=== PATIENT | female | born 1950 | race Caucasian/White ===

== ENCOUNTER 2018-04-19 17:05 | Emergency (ER) | payer MEDICARE, OTHER ==
[2018-04-19] MEDS ORDERED: Sodium Chloride 0.9% 1,000 ML IV ONE (17:48)
[2018-04-19] MEDS ORDERED: Sodium Chloride 0.9% 10 ML Syringe FLUSH PRN (17:49)
[2018-04-19] MEDS ORDERED: Pantoprazole 40 MG Vial IVPUSH ONE (17:49)
--- NOTE | 2018-04-19 19:01 | EDM.PDOC ---
"<Leighann Elise - Last Filed: 04/19/18 19:52> ED HPI GENERAL MEDICAL PROBLEM - General Chief Complaint: Gastrointestinal Problem Stated Complaint: LOW HEMOGLOBIN/CHI DL CLINIC Time Seen by Provider: 04/19/18 19:00 - History of Present Illness INITIAL COMMENTS - FREE TEXT/NARRATIVE: Danny is a 67 year old Female presented to the clinic this morning with melanotic stool for 3 days. She has associated symptoms of dizziness, fatigue, and decreased appetite. Her symptoms started while on vacation in [place]. Since the beginning of her symptoms she has also experienced constant epigastric pain and some intermittent left lower quadrant pain. She has had constant melanotic stools per day with some hematochezia as well. She endorses frequent chronic, uncontrolled bowel movements due to a history of gastric bypass surgery but has never had melena or hematochezia. She has also experienced an increased amount of abdominal distension and gas. She was also treated in clinic today with Amoxicillin for a sinus infection. Epigastric Pain Score (Numeric/FACES): 5 - Related Data Allergies Allergy/AdvReac Type Severity Reaction Status Date / Time codeine Allergy Hallucinati Verified 04/19/18 17:11 ons Home Meds: Home Meds Zolpidem [Ambien] 1 tab PO BEDTIME PRN 11/26/14 [History] Past Medical History Respiratory History: Reports: Asthma Other Musculoskeletal History: NEUROMA OF FOOT Other Oncologic History: Extensive family history of breast cancer in all members of her female family. Mon-Grandmother and sister all dies of breast cancer. Family Physician recommended she have a mastectomy after having 7 lumps removed over the. past several years...so in 2011 has a double mastectomy. Has a Uncle nad a brother with colon cancer...this on mothers side. Having follow up colonoscopy by Dr. Maciel tomorrow 11/27/14 - Infectious Disease History Infectious Disease History: Reports: Measles, Mumps - Past Surgical History Other HEENT Surgeries/Procedures: ADENOIDECTOMY Other Cardiovascular Surgeries/Procedures: CARDIAC CATHERTERIZATION; STRESS TEST ; ECHOCARDOGRAPHY; ELECTROCARDIOGRAM Other GI Surgeries/Procedures: GASTRIC BYPASS and Hemorrhoid resection Female Surgical History: Reports: Hysterectomy, Mastectomy (Elective double mastectomy due to significant family history) Other Oncologic Surgeries/Procedures: double mastectomy due to family Hx. Social & Family History - Tobacco Use Smoking Status *Q: Never Smoker Second Hand Smoke Exposure: No - Caffeine Use Caffeine Use: Reports: Soda - Recreational Drug Use Recreational Drug Use: No ED ROS GENERAL - Review of Systems Review Of Systems: See Below Constitutional: Reports: Weakness (per HPI), Fatigue (per HPI), Decreased Appetite (per HPI) HEENT: Reports: No Symptoms Respiratory: Reports: No Symptoms Cardiovascular: Reports: No Symptoms GI/Abdominal: Reports: Diarrhea (Chronic) : Reports: No Symptoms Musculoskeletal: Reports: No Symptoms Skin: Reports: No Symptoms Neurological: Reports: Dizziness (per HPI) ED EXAM, GI/ABD - Physical Exam Exam: See Below Exam Limited By: No Limitations General Appearance: Alert, Mild Distress Eyes: Bilateral: Normal Appearance, EOMI Ears: Normal External Exam, Hearing Grossly Normal Nose: Normal Inspection, Nasal Tenderness Throat/Mouth: Normal Inspection Head: Atraumatic, Normocephalic Neck: Normal Inspection, Supple, Non-Tender Respiratory/Chest: No Respiratory Distress, Lungs Clear, Normal Breath Sounds Cardiovascular: Normal Peripheral Pulses, Regular Rate, Rhythm Rectal (Female) Exam: Normal Rectal Tone, Black Stool, Bloody Stool. No: Hemorrhoids, Mass, Tenderness Extremities: Pedal Edema (developed after the flight, 1+ bilaterally), Slow Capillary Refill (3 seconds) Neurological: Alert, Oriented Skin Exam: Warm, Dry, Intact, Pallor Course - Vital Signs Last Recorded V/S: Last Vital Signs Temp 99.8 F 04/19/18 19:23 Pulse 90 04/19/18 19:23 Resp 18 04/19/18 19:23 BP 104/48 L 04/19/18 19:23 Pulse Ox 99 04/19/18 19:23 - Orders/Labs/Meds Orders: Active Orders 24 hr Category Date Time Status Peripheral IV Care [RC] . DIRECTED Care 04/19/18 17:49 Active Abdomen Pelvis w Cont [CT] Urgent Exams 04/19/18 19:39 Ordered RED BLOOD CELLS LP [BBK] Stat Lab 04/19/18 17:57 Results TYPE AND SCREEN [BBK] Stat Lab 04/19/18 17:57 Results Peripheral IV Insertion Adult [OM.PC] Stat Oth 04/19/18 17:47 Ordered Labs: Laboratory Tests 04/19/18 04/19/18 04/19/18 Range/Units 17:57 17:57 17:57 WBC 5.9 (5.0-10.0) 10^3/uL RBC 2.82 L (4.2-5.4) 10^6/uL Hgb 7.2 L (12.0-16.0) g/dL Hct 23.5 L (37.0-47.0) % MCV 83.3 (80-100) fL MCH 25.5 L (27.0-34.0) pg MCHC 30.6 L (33.0-35.0) g/dL Plt Count 282 (150-450) 10^3/uL Neut % (Auto) 62.5 (42.2-75.2) % Lymph % (Auto) 21.4 (20.5-50.1) % Gaines % (Auto) 15.4 H (2-8) % Eos % (Auto) 0.2 L (1.0-3.0) % Baso % (Auto) 0.5 (0.0-1.0) % Amylase 73 (28-100) U/L Lipase 35 (22-51) U/L Blood Type O POSITIVE Gel Antibody Screen Negative Crossmatch See Detail Meds: Medications Discontinued Medications Generic Name Dose Route Start Last Admin Trade Name Freq PRN Reason Stop Dose Admin Sodium Chloride 1,000 mls @ 200 mls/hr 04/19/18 17:48 04/19/18 18:08 Normal Saline IV 04/19/18 22:47 200 mls/hr .BOLUS ONE Administration Iopamidol 75 ml 04/19/18 19:36 04/19/18 20:07 Isovue-300 (61%) IVPUSH 04/19/18 19:37 75 ml ONETIME ONE Administration Pantoprazole Sodium 80 mg 04/19/18 17:49 04/19/18 18:08 Protonix Iv IVPUSH 04/19/18 17:50 80 mg .BOLUS ONE Administration Sodium Chloride 10 ml 04/19/18 17:49 04/19/18 18:08 Saline Flush FLUSH 10 ml ASDIRECTED PRN Administration Keep Vein Open Departure - Departure Time of Disposition: 19:57 Condition: Fair Clinical Impression: GI bleed Qualifiers: GI bleed type/associated pathology: melena Qualified Code(s): K92.1 - Melena - Discharge Information *PRESCRIPTION DRUG MONITORING PROGRAM REVIEWED*: No *COPY OF PRESCRIPTION DRUG MONITORING REPORT IN PATIENT LOWELL: No Referrals: Katherine Munguia NP [Primary Care Provider] - Forms: ED Department Discharge - My Orders Last 24 Hours: My Active Orders 04/19/18 19:39 Abdomen Pelvis w Cont [CT] Urgent - Assessment/Plan Last 24 Hours: My Active Orders 04/19/18 19:39 Abdomen Pelvis w Cont [CT] Urgent Assessment:: Danny is a 67 year old Female presenting with a gastrointestinal bleed symptomatic for 4 days. Patient is being transferred to [place], [place]. Plan: 1. [facility] was contacted and Dr. Nunes is accepting transport. 2. CT with contrast was requested and completed due to extra time waiting for transfer. Patient was seen and evaluated today by myself and BUDDY Casas. Assessment and Plan are under advisement of BUDDY Casas. -FRANCOIS Meneses - My Orders Last 24 Hours: My Active Orders 04/19/18 19:39 Abdomen Pelvis w Cont [CT] Urgent <Jaguar Carroll - Last Filed: 04/20/18 01:15> ED HPI GENERAL MEDICAL PROBLEM - General Source of Information: Reports: Patient History Limitations: Reports: No Limitations ED EXAM, GI/ABD - Physical Exam Comments: I saw and evaluated the patient. Discussed with medical student and agree the with findings,and plan as documented in note. Course - Radiology Interpretation Free Text/Narrative:: SSN: -- : 1950 Study: CT ABDOMEN/PELVIS W Requesting Physician: JAGUAR CARROLL Images: [id number] Addl Studies: Provided Clinical History: Contrast: With Contrast Medium: isovue 300 Contrast Amount: 75 mL Contrast Method: RAC Page 1 of 2 EXAM: CT Abdomen and Pelvis With Contrast EXAM DATE/TIME: 04/19/2018 7:56 PM CLINICAL HISTORY: 67 years old, female; Pain; Abdominal pain; Acute; Patient HX: Epigastric pain, llq pain, melena low grade temp. 100.7 TECHNIQUE: Axial computed tomography images of the abdomen and pelvis with intravenous contrast. All CT scans at this facility use at least one of these dose optimization techniques: automated exposure control; mA and/or kV adjustment per patient size (includes targeted exams where dose is matched to clinical indication); or iterative reconstruction. Coronal and sagittal reformatted images were created and reviewed. CONTRAST: Contrast Material: 75 ml of isovue 300; Contrast Route: RAC COMPARISON: No relevant prior studies available. FINDINGS: Lower thorax: No acute findings. ABDOMEN: Liver: Normal. No mass. Gallbladder and bile ducts: Normal. No calcified stones. No ductal dilation. Pancreas: Normal. No ductal dilation. DANNY PICKETT | Final Radiology Report CONFIDENTIALITY STATEMENT This report is intended only for use by the referring physician, and only in accordance with law. If you received this in error, call [phone]. Page 2 of 2 Spleen: Normal. No splenomegaly. Adrenals: Normal. No mass. Kidneys and ureters: Normal. No hydronephrosis. Stomach and bowel: Gastric postsurgical change is noted . Bowel gas pattern is nonobstructive. Appendix: No evidence of appendicitis. PELVIS: Bladder: Unremarkable as visualized. Reproductive: Uterus may be surgically absent. ABDOMEN and PELVIS: Intraperitoneal space: Normal. No free air. No significant fluid collection. Bones/joints: No acute fracture. No dislocation. Soft tissues: Unremarkable. Vasculature: Normal. No abdominal aortic aneurysm. Lymph nodes: Normal. No enlarged lymph nodes. IMPRESSION: No acute process Thank you for allowing us to participate in the care of your patient. Dictated and Authenticated by: Danyel Hooker MD 04/19/2018 8:14 PM Central Time ([place] & [place]) - Problem List Review Problem List Initiated/Reviewed/Updated: No"
[2018-04-19 19:23] VITALS: BP 104/48
[2018-04-19] MEDS ORDERED: Iopamidol 612 MG/ML 75 ML Bottle IVPUSH ONE (19:36)
== END 2018-04-19 20:24 ==
LOC: DL.ED 17:05
DX: K92.1 Melena (principal); Z88.5 Allergy status to narcotic agent
CPT/HCPCS: 36415; 74177; 82150; 82272; 83690; 85025; 86850; 86900; 86901; 86920; 86922; 96361; 96374; 99285-25; C9113; J7030; Q9967

== ENCOUNTER 2020-03-07 05:19 | Day surgery (SDC) | payer MEDICARE, OTHER ==
[2020-03-07] MEDS ORDERED: Midazolam 1 MG/ML 2 ML SDV IV ONE ×7 (05:20→06:43)
[2020-03-07] MEDS ORDERED: fentaNYL 100 MCG/2 ML SDV IV ONE ×4 (05:20→06:44)
[2020-03-07] MEDS ORDERED: Dextrose 5%-0.45% NaCl 1,000 ML IV SCH (06:00)
[2020-03-07] MEDS ORDERED: Sodium Chloride 0.9% 10 ML Syringe FLUSH SCH (06:00)
[2020-03-07] MEDS ORDERED: Midazolam 1 MG/ML 2 ML SDV ONE (06:19)
[2020-03-07] MEDS ORDERED: fentaNYL 100 MCG/2 ML SDV ONE (06:19)
--- NOTE | 2020-03-07 07:46 | OR ---
DATE: 03/07/2020 PROCEDURES: Total colonoscopy and multiple pinch biopsies. INSTRUMENT USED: PCF-H190DL Olympus video colonoscope. PREMEDICATIONS: Fentanyl 125 mcg intravenous, Versed 4 mg intravenous. Nasal O2 cannula. The procedure was done under pulse oximetry, BP recording, and hospital monitor. INDICATION: The patient with chronic diarrhea, unexplained and not responsive to medical measures. Colonoscopic examination is done for detection of any polypoid lesions and removal, biopsies to be obtained for microscopic colitis, endoscopic hemostasis therapy if needed. DESCRIPTION OF PROCEDURE: Initial rectal exam was unremarkable. Rigid anoscopy was normal. The colonoscope was passed with ease to the ileocecal area. Photographs were taken of the normal-appearing cecum identified by thin-lipped ileocecal valve that prevented further advancement of the tip of the scope to visualize terminal ileum. The bowel preparation was found to be adequate, Gerald scale 2 in all the regions, total score 6. No stricture. No vascular ectasia. No large isolated ulceration seen. No evidence of diffuse inflammatory bowel disease in the form of friability, contact bleeding, or ulcerations. No polyp or tumor mass identified. Probing the proximal sides of folds and flexures using adequate distention and clearing up the stool material, withdrawal of the scope was made. Multiple pinch biopsies were taken from the normal-appearing mucosa of the mid transverse colon, mid descending colon, and rectosigmoid and sent for any histopathologic evidence of microscopic colitis. No bleeding was noted from any of the visualized areas at the completion of examination. IMPRESSION: Normal study. The patient tolerated the procedure well. [facility] /[id number]
--- NOTE | 2020-03-07 09:38 | LETTER ---
03/07/2020 RE: DANNY PICKETT [place] : 1950 Julianna Chavez PA-C [address] [place] [id number] Dear Ms. Chavez: Ms. Danny Pickett had colonoscopic examination done this morning and she tolerated the procedure well. I herewith send a copy of the endoscopy note and photographs for your review. Thank you. Sincerely. [facility] /[id number]
[2020-03-07 10:56] VITALS: BP 87/49; PULSE 74
== END 2020-03-07 09:08 | disposition home or self-care (01) ==
LOC: DL.ENDO 05:19
PROVIDERS: ATTEND Internal Medicine Gastroenterology
DX: K52.9 Noninfective gastroenteritis and colitis, unspecified (principal); D50.9 Iron deficiency anemia, unspecified; Z88.5 Allergy status to narcotic agent; Z98.84 Bariatric surgery status
CPT/HCPCS: 45380; 88305; J2250; J3010; J7042

== ENCOUNTER 2020-09-24 12:09 | Emergency (ER) | payer MEDICARE, OTHER ==
--- NOTE | 2020-09-24 12:22 | EDM.PDOC ---
ED HPI GENERAL MEDICAL PROBLEM - General Chief Complaint: Back Pain or Injury Stated Complaint: [id number] BACK IS OUT Time Seen by Provider: 09/24/20 12:21 Source of Information: Reports: Patient, Family, Old Records, RN, RN Notes Reviewed History Limitations: Reports: No Limitations - History of Present Illness INITIAL COMMENTS - FREE TEXT/NARRATIVE: Pt presents to ER from home by POV with c/o flare up of chronic low back pain. Pt denies any fall or injury. Denies radiating pain, saddle area numbness, loss of bowel or bladder control, or motor weakness. Onset: Gradual Duration: Chronic, Constant, Getting Worse Location: Reports: Back Quality: Reports: Ache, Same as Previous Episode Severity: Severe Improves with: Reports: None Worsens with: Reports: Movement Associated Symptoms: Reports: No Other Symptoms Bilateral Lower Back Pain Score (Numeric/FACES): 10 - Related Data Allergies Allergy/AdvReac Type Severity Reaction Status Date / Time No Known Allergies Allergy Verified 03/07/20 05:38 Home Meds: Home Meds Zolpidem [Ambien] 5 mg PO BEDTIME PRN 11/26/14 [History] Ferrous Sulfate 325 mg PO DAILY 03/04/20 [History] Pregabalin [Lyrica] 75 mg PO BID 03/04/20 [History] Biotin 10,000 mcg PO DAILY 03/07/20 [History] Multivit with Calcium,Iron,Min [One Daily Women's] 1 tab PO DAILY 03/07/20 [History] Past Medical History HEENT History: Reports: Impaired Vision Cardiovascular History: Reports: None Respiratory History: Reports: Asthma Gastrointestinal History: Reports: GI Bleed Genitourinary History: Reports: None [employer]ES History: Reports: Musculoskeletal History: Reports: Back Pain, Chronic, Other (See Below) Other Musculoskeletal History: NEUROMA OF FOOT Neurological History: Reports: None Psychiatric History: Reports: None Endocrine/Metabolic History: Reports: Obesity/BMI 30+ Hematologic History: Reports: Blood Transfusion(s), Iron Deficiency Immunologic History: Reports: None Oncologic (Cancer) History: Reports: Other (See Below) Other Oncologic History: Extensive family history of breast cancer in all members of her female family. Mon-Grandmother and sister all dies of breast cancer. Family Physician recommended she have a mastectomy after having 7 lumps removed over the. past several years...so in November of 2011 had a double mastectomy. Has a Uncle nad a brother with colon cancer...this on mothers side. Having follow up colonoscopy by Dr. Maciel tomorrow 11/27/14 Dermatologic History: Reports: None - Infectious Disease History Infectious Disease History: Reports: Measles, Mumps - Past Surgical History Other HEENT Surgeries/Procedures: ADENOIDECTOMY Other GI Surgeries/Procedures: GASTRIC BYPASS and Hemorrhoid resection Social & Family History - Family History Family Medical History: No Pertinent Family History - Caffeine Use Caffeine Use: Reports: Soda Other Caffeine Use: TEA - Living Situation & Occupation Living situation: Reports: , with Spouse ED ROS GENERAL - Review of Systems Review Of Systems: Comprehensive ROS is negative, except as noted in HPI. ED EXAM,LOWER BACK PAIN/INJURY - Physical Exam Exam: See Below Exam Limited By: No Limitations General Appearance: Alert, WD/WN, No Apparent Distress Throat/Mouth: Normal Voice, No Airway Compromise Head: Atraumatic, Normocephalic Neck: Normal Inspection Respiratory/Chest: No Respiratory Distress Cardiovascular: Normal Peripheral Pulses GI/Abdominal: Non-Tender Back Exam: Decreased Range of Motion, Muscle Spasm, Other (Generalized lumbar regional tenderness). No: CVA Tenderness (L), Paraspinal Tenderness, Vertebral Tenderness Extremities: Normal Inspection, Normal Range of Motion, Non-Tender, No Pedal Edema, Normal Capillary Refill Neurological: Alert, Normal Mood/Affect, Normal Dorsiflexion, Normal Plantar Flexion, No Motor/Sensory Deficits, Oriented x 3, Difficulty Walking (due to back pain) Psychiatric: Normal Affect, Normal Mood Skin Exam: Warm, Dry, Intact, Normal Color, No Rash Course - Vital Signs Last Recorded V/S: Last Vital Signs Temp 98.1 F 09/24/20 12:28 Pulse 67 09/24/20 12:28 Resp 16 09/24/20 12:28 BP 132/72 09/24/20 12:28 Pulse Ox 99 09/24/20 12:28 - Orders/Labs/Meds Meds: Medications Discontinued Medications Generic Name Dose Route Start Last Admin Trade Name Freq PRN Reason Stop Dose Admin Hydromorphone HCl 1 mg 09/24/20 12:33 09/24/20 13:04 Hydromorphone 1 Mg/Ml Syringe IM 09/24/20 12:34 1 mg ONETIME ONE Administration Ondansetron HCl 4 mg 09/24/20 12:34 09/24/20 13:04 Ondansetron 4 Mg Tab.Dis PO 09/24/20 12:35 4 mg ONETIME ONE Administration Orphenadrine Citrate 60 mg 09/24/20 12:33 09/24/20 13:04 Orphenadrine 60 Mg/2 Ml Inj IM 09/24/20 12:34 60 mg ONETIME ONE Administration - Re-Assessments/Exams Free Text/Narrative Re-Assessment/Exam: 09/24/20 14:13 Chronic back pain, no neurologic symptoms, no injury. I see no indication for imaging at this time. Departure - Departure Time of Disposition: 13:08 Disposition: Home, Self-Care 01 Condition: Good Clinical Impression: Acute exacerbation of chronic low back pain - Discharge Information *PRESCRIPTION DRUG MONITORING PROGRAM REVIEWED*: Not Applicable *COPY OF PRESCRIPTION DRUG MONITORING REPORT IN PATIENT LOWELL: Not Applicable Instructions: Acute Back Pain, Adult, Chronic Back Pain Forms: ED Department Discharge Additional Instructions: Rx: Hydrocodone APAP 7.5mg-325mg/15mls *Do not drive while under the influence of this medication. Follow up in clinic if not improving as expected. Sepsis Event Note (ED) - Focused Exam Vital Signs: Vital Signs Temp Pulse Resp BP Pulse Ox 09/24/20 12:28 98.1 F 67 16 132/72 99
[2020-09-24 12:34] VITALS: BP 132/72; PULSE 67
[2020-09-24] MEDS: HYDROmorphone 1 MG/ML Syringe IM ONE (13:04)
[2020-09-24] MEDS: Ondansetron 4 MG Tab.DIS PO ONE (13:04)
[2020-09-24] MEDS: Orphenadrine 60 MG/2 ML Inj IM ONE (13:04)
== END 2020-09-24 13:36 | disposition home or self-care (01) ==
LOC: DL.ED 12:09
DX: M54.5 Low back pain (principal); G89.29 Other chronic pain
CPT/HCPCS: 96372; 99283; A9270-GY; J1170; J2360